=== PATIENT | female | born 1970 | race African-American/Black ===

== ENCOUNTER 2020-05-07 18:11 | Inpatient (IN) | payer MEDICARE, OTHER ==
[~2020-05-07] VITALS: Ht 167.6 cm; Wt 111.6 kg
[2020-05-07 19:02] LABS: BASOPHILS % (AUTO) 0.8 % (0.0-2.0); EOSINOPHILS % (AUTO) 0.8 % (0.0-7.0); HEMATOCRIT 23.3 % (31.2-41.9); HEMOGLOBIN 7.7 g/dL (10.9-14.3); LYMPHOCYTES # (AUTO) 0.2 K/uL (20.0-40.0); LYMPHOCYTES % (AUTO) 4.4 % (20.5-51.5); MEAN CORPUSCULAR HEMOGLOBIN 35.3 uug (24.7-32.8); MEAN CORPUSCULAR HGB CONC 33 g/dL (32.3-35.6); MONOCYTES # (AUTO) 0.6 K/uL (2.0-10.0); MONOCYTES % (AUTO) 10.5 % (0.0-11.0); NEUTROPHILS # (AUTO) 4.7 K/uL (1.8-8.9); NEUTROPHILS % (AUTO) 83.5 % (38.5-71.5); PLATELET COUNT (AUTO) 286 K/uL (179-408); WHITE BLOOD COUNT (AUTO) 5.7 K/uL (3.8-11.8)
--- NOTE | 2020-05-07 19:06 | NUR ---
Pt MATTHEW ACEVEDO, reports pt has generalized weakness, BG 123, had dialysis today. Pt c/o General weakness since Thanksgiving, today is worse. Pt also c/o dizziness, SOB, cough, and nausea. Pt denies CP. No distress noted but pt is lethargic.
[2020-05-07 19:08] LABS: POTASSIUM 4.2 mmol/L (3.5-5.1)
[2020-05-07 19:11] LABS: RED BLOOD CELL COUNT(AUTO) 2.18 MIL/uL (3.63-4.92)
[2020-05-07 19:23] LABS: ABG HCO3 30.6 mmol/L; ABG PCO2 38.9 mmHg (35.0-45.0); ABG PH 7.513 (7.350-7.450); ABG SITE RIGHT RADIAL; ABG TOTAL HEMOGLOBIN 7.8 G/dL (12.0-16.0); COHb 1.9 % (0.5-1.5); MetHb 0.6 % (0.0-1.5); O2Hb 81.3 % (94.0-97.0); VENT MODE Room Air
[2020-05-07 19:47] LABS: FERRITIN 1946 ng/mL (8-252); LACTATE DEHYDROGENASE 331 U/L (81-234)
[2020-05-07 19:49] LABS: BILIRUBIN,DIRECT 0.3 mg/dL (0.0-0.2); BILIRUBIN,TOTAL 0.9 mg/dL (0.2-1.0); TOTAL PROTEIN, SERUM 8.4 g/dL (6.4-8.2)
--- NOTE | 2020-05-07 20:44 | NUR ---
GEOPHYSICAL LABORATORY DIRECTOR KRISTIN NOTIFIED COVID ANTIGEN POSTIVE for patient
[2020-05-07] MEDS ORDERED: AZITHROMYCIN IV 500 MG in IV DEXTROSE 5% 250 ML IV ONE (21:00)
[2020-05-07] MEDS ORDERED: CEFTRIAXONE 1 G in IV DEXTROSE 5% 50 ML IV ONE (21:00)
[2020-05-07] MEDS ORDERED: CEFTRIAXONE /D5W 50ML IVPB **ER PYXIS IV ONE (21:45)
[2020-05-07] MEDS ORDERED: AZITHROMYCIN 500MG/ D5W 250ML IVPB **ER PYXIS ONLY IV ONE (22:39)
--- NOTE | 2020-05-08 | NUR ---
Point of contact ZOE
[2020-05-08] MEDS ORDERED: DEXAMETHASONE SOD PHOSPHATE 4 MG INJ IV ONE (00:45)
--- NOTE | 2020-05-08 00:45 | NUR ---
Patient SBP increased to 170s-180s range; MD HERNANDEZ notified.
[2020-05-08] MEDS ORDERED: DEXAMETHASONE SOD PHOSPHATE 10 MG INJ ONE (01:09)
--- NOTE | 2020-05-08 03:05 | NUR ---
Patient SBP trending now in 160s to 170s range. MD HERNANDEZ notified. No orders given at this time.
--- NOTE | 2020-05-08 05:09 | NUR ---
Rashmi SANDHU On-Call Doctor, awaiting call back. Addendum: 05/08/20 at 0631 by TANYA For SBP management
--- NOTE | 2020-05-08 05:38 | NUR ---
Dr. Khan returned call; requested pt to be transitional status. Addendum: 05/08/20 at 0632 by TANYA Amendment john in EDM - 05/08/20 at 0632 by TANYA To continue patient's care Addendum: 05/08/20 at 0632 by TANYA To manage patient's care
[2020-05-08] MEDS ORDERED: ALBUTEROL SULFATE 8 GM HFA.AER.AD IH PRN (06:15)
[2020-05-08] MEDS ORDERED: TEMAZEPAM 15 MG CAPSULE PO PRN (06:15)
--- NOTE | 2020-05-08 06:15 | NUR ---
Blood glucose result 57, patient given apple juice.
[2020-05-08 06:33] LABS: BASOPHILS % (AUTO) 0.8 % (0.0-2.0); EOSINOPHILS % (AUTO) 0.2 % (0.0-7.0); HEMATOCRIT 22.5 % (31.2-41.9); HEMOGLOBIN 7.5 g/dL (10.9-14.3); LYMPHOCYTES # (AUTO) 0.1 K/uL (20.0-40.0); LYMPHOCYTES % (AUTO) 3.4 % (20.5-51.5); MEAN CORPUSCULAR HEMOGLOBIN 35.9 uug (24.7-32.8); MEAN CORPUSCULAR HGB CONC 34 g/dL (32.3-35.6); MONOCYTES # (AUTO) 0.2 K/uL (2.0-10.0); MONOCYTES % (AUTO) 5.7 % (0.0-11.0); NEUTROPHILS # (AUTO) 3.9 K/uL (1.8-8.9); NEUTROPHILS % (AUTO) 89.9 % (38.5-71.5); PLATELET COUNT (AUTO) 269 K/uL (179-408); WHITE BLOOD COUNT (AUTO) 4.3 K/uL (3.8-11.8)
[2020-05-08 06:45] LABS: POTASSIUM 4.8 mmol/L (3.5-5.1)
[2020-05-08 06:47] LABS: CREATININE 10.4 mg/dL (0.6-1.3)
[2020-05-08 06:50] LABS: BILIRUBIN,TOTAL 0.8 mg/dL (0.2-1.0); MAGNESIUM 2.2 mg/dL (1.8-2.4); PHOSPHOROUS 5.9 mg/dL (2.5-4.9); TOTAL PROTEIN, SERUM 8.2 g/dL (6.4-8.2)
[2020-05-08 06:56] LABS: THYROID STIMULATING HORMONE 2.132 mIU/mL (0.358-3.740)
[2020-05-08] MEDS ORDERED: DEXTROSE 50% 50 ML DISP.SYRIN IV ONE (07:15)
[2020-05-08] MEDS ORDERED: DEXTROSE 50% 50 ML DISP.SYRIN ONE (07:15)
[2020-05-08] MEDS: CLONIDINE HCL 0.1 MG TABLET PO PRN (07:27)
[2020-05-08] MEDS ORDERED: CLONIDINE HCL 0.1 MG TABLET ONE (07:29)
--- NOTE | 2020-05-08 08:30 | NUR ---
Pt resting in bed, no complaints, no distress noted.
[2020-05-08] MEDS ORDERED: AMLODIPINE 5 MG TABLET ONE ×2 (09:45→22:26)
[2020-05-08] MEDS ORDERED: METOPROLOL TARTRATE 50 MG TABLET ONE ×2 (09:46→22:26)
[2020-05-08] MEDS ORDERED: ASPIRIN EC 81 MG TABLET.DR PO ONE (09:46)
[2020-05-08] MEDS ORDERED: PANTOPRAZOLE SODIUM 40 MG TABLET.DR PO ONE (09:46)
[2020-05-08] MEDS: AMLODIPINE 5 MG TABLET PO SCH ×2 (10:15→22:00)
[2020-05-08] MEDS: PANTOPRAZOLE SODIUM 40 MG TABLET.DR PO SCH (10:15)
[2020-05-08] MEDS: METOPROLOL TARTRATE 50 MG TABLET PO SCH ×2 (10:15→22:00)
[2020-05-08] MEDS: ASPIRIN EC 81 MG TABLET.DR PO SCH (10:15)
--- NOTE | 2020-05-08 14:05 | NUR ---
Gave pt lunch tray. Pt instructed in necessity to keep O2 canula in place, kept moving it below her chin.
--- NOTE | 2020-05-08 17:00 | NUR ---
Pt resting in bed, no further complaints, no distress noted. Gave pt crackers and juice.
--- NOTE | 2020-05-08 19:20 | NUR ---
Dialysis nurse arrived to provide dialysis to patient.
[2020-05-08] MEDS ORDERED: DOCUSATE SODIUM 250 MG CAPSULE PO SCH (21:00)
[2020-05-08] MEDS: DOCUSATE SODIUM 100 MG CAPSULE PO SCH (22:00)
[2020-05-08] MEDS ORDERED: DOCUSATE SODIUM 100 MG CAPSULE PO ONE (22:17)
--- NOTE | 2020-05-08 23:50 | NUR ---
Patient is resting in bed peacefully, no distress noted.
--- NOTE | 2020-05-09 04:31 | NUR ---
Patient is resting in bed with eyes closed, no distress noted at this time.
[2020-05-09] MEDS ORDERED: CLONIDINE HCL 0.1 MG TABLET ONE (06:22)
[2020-05-09] MEDS: CLONIDINE HCL 0.1 MG TABLET PO PRN (06:23)
--- NOTE | 2020-05-09 07:38 | NUR ---
(Pandemic disaster charting with no appropriate staffing ratio observed in ER): Maintenance Groundman assumes care: patient is seen on gurney, AOX4, obese, "I am blind." per patient's verbalization, reorientation to surroundings done, respiration:easy, skin warm & dry, afebrile, calm, denies feelings of shortness of breath, pending available COVID telemetry bed & [email or web address] time
[2020-05-09] MEDS ORDERED: METOPROLOL TARTRATE 50 MG TABLET ONE ×2 (08:33→20:50)
[2020-05-09] MEDS ORDERED: AMLODIPINE 5 MG TABLET ONE ×2 (08:33→20:50)
[2020-05-09] MEDS ORDERED: ASPIRIN EC 81 MG TABLET.DR PO ONE (08:33)
[2020-05-09] MEDS ORDERED: PANTOPRAZOLE SODIUM 40 MG TABLET.DR PO ONE (08:33)
[2020-05-09] MEDS: PANTOPRAZOLE SODIUM 40 MG TABLET.DR PO SCH (09:00)
[2020-05-09] MEDS: ASPIRIN EC 81 MG TABLET.DR PO SCH (09:08)
[2020-05-09] MEDS: METOPROLOL TARTRATE 50 MG TABLET PO SCH ×2 (09:08→21:15)
[2020-05-09] MEDS: AMLODIPINE 5 MG TABLET PO SCH ×2 (09:08→21:15)
[2020-05-09 10:32] LABS: BILIRUBIN,TOTAL 0.7 mg/dL (0.2-1.0); MAGNESIUM 2.3 mg/dL (1.8-2.4); PHOSPHOROUS 6.2 mg/dL (2.5-4.9); POTASSIUM 4.9 mmol/L (3.5-5.1); TOTAL PROTEIN, SERUM 7.3 g/dL (6.4-8.2)
[2020-05-09 10:47] LABS: CREATININE 9.4 mg/dL (0.6-1.3)
--- NOTE | 2020-05-09 11:25 | NUR ---
Patient is seen intermittently removing her nasal cannula. Explained to patient the importance of this oxygen supplement in the treatment plan for COVID-pneumonia. Patient verbalized understanding. Patient frequently asked for ice water, saltine crackers, microwave popcorn & bread. I also explained to her the prescribed diet while in the hospital. More discussion needed in small frequent doses to sustain patient's interest.
[2020-05-09 12:39] LABS: BASOPHILS % (AUTO) 0.4 % (0.0-2.0); EOSINOPHILS # (AUTO) 0.1 K/uL (0.0-0.7); EOSINOPHILS % (AUTO) 1.8 % (0.0-7.0); HEMATOCRIT 21.4 % (31.2-41.9); LYMPHOCYTES # (AUTO) 0.7 K/uL (20.0-40.0); LYMPHOCYTES % (AUTO) 12.6 % (20.5-51.5); MEAN CORPUSCULAR HEMOGLOBIN 34.7 uug (24.7-32.8); MEAN CORPUSCULAR HGB CONC 32 g/dL (32.3-35.6); MEAN CORPUSCULAR VOLUME 109.3 fL (75.5-95.3); MONOCYTES # (AUTO) 0.5 K/uL (2.0-10.0); MONOCYTES % (AUTO) 8.7 % (0.0-11.0); NEUTROPHILS % (AUTO) 76.5 % (38.5-71.5); PLATELET COUNT (AUTO) 241 K/uL (179-408); WHITE BLOOD COUNT (AUTO) 5.3 K/uL (3.8-11.8)
--- NOTE | 2020-05-09 13:21 | NUR ---
Patient was moved from [facility] to hospital bed for comfort. Safety & isolation measures maintained.
[2020-05-09 13:33] LABS: HEMOGLOBIN 6.8 g/dL (10.9-14.3); RED BLOOD CELL COUNT(AUTO) 1.96 MIL/uL (3.63-4.92)
[2020-05-09 14:17] LABS: BASOPHILS % (AUTO) 0.7 % (0.0-2.0); EOSINOPHILS # (AUTO) 0.1 K/uL (0.0-0.7); EOSINOPHILS % (AUTO) 1.9 % (0.0-7.0); HEMATOCRIT 21.8 % (31.2-41.9); LYMPHOCYTES # (AUTO) 0.6 K/uL (20.0-40.0); LYMPHOCYTES % (AUTO) 11.3 % (20.5-51.5); MEAN CORPUSCULAR HGB CONC 32 g/dL (32.3-35.6); MEAN CORPUSCULAR VOLUME 110.2 fL (75.5-95.3); MONOCYTES # (AUTO) 0.7 K/uL (2.0-10.0); MONOCYTES % (AUTO) 11.9 % (0.0-11.0); NEUTROPHILS # (AUTO) 4.1 K/uL (1.8-8.9); NEUTROPHILS % (AUTO) 74.2 % (38.5-71.5); PLATELET COUNT (AUTO) 233 K/uL (179-408); WHITE BLOOD COUNT (AUTO) 5.5 K/uL (3.8-11.8)
[2020-05-09 14:38] LABS: RED BLOOD CELL COUNT(AUTO) 1.98 MIL/uL (3.63-4.92)
[2020-05-09 14:39] LABS: HEMOGLOBIN 6.9 g/dL (10.9-14.3)
[2020-05-09] MEDS ORDERED: LABE200T5 PO (15:27)
[2020-05-09] MEDS ORDERED: LEVO100C4 PO (15:27)
[2020-05-09] MEDS ORDERED: GLIM4TAB37 PO (15:27)
[2020-05-09] MEDS ORDERED: SEVE800T8 PO (15:32)
--- NOTE | 2020-05-09 16:05 | NUR ---
Patient's mother called. Update was given. 4 home medications were reported by patient's mother.
[2020-05-09] MEDS: AZITHROMYCIN IV 500 MG in IV DEXTROSE 5% 250 ML IV SCH (16:27)
[2020-05-09] MEDS ORDERED: WARFARIN SODIUM 4 MG TABLET ONE (16:31)
[2020-05-09] MEDS ORDERED: CEFTRIAXONE /D5W 50ML IVPB **ER PYXIS IV ONE (16:32)
[2020-05-09] MEDS ORDERED: AZITHROMYCIN 500MG/ D5W 250ML IVPB **ER PYXIS ONLY IV ONE (16:32)
[2020-05-09] MEDS: CEFTRIAXONE 1 G in IV DEXTROSE 5% 50 ML IV SCH (16:57)
[2020-05-09] MEDS: WARFARIN SODIUM 4 MG TABLET PO SCH (17:00)
[2020-05-09] MEDS ORDERED: HYDROCODONE/APAP 5-325MG TABLET ONE (17:07)
--- NOTE | 2020-05-09 17:42 | NUR ---
Patient is asking for salt & sugar rich foods (e.g. "I want lots of saltine crackers, popcorn, and juice." per patient's verbalization). I explained again the prescribed diet for her. Dinner tray@bedside.
[2020-05-09] MEDS ORDERED: DEXTROSE 50% 50 ML DISP.SYRIN IV PRN (18:45)
--- NOTE | 2020-05-09 19:00 | NUR ---
Patient is resting comfortably in bed while watching bedside TV & finishing her dinner tray.
--- NOTE | 2020-05-09 19:30 | NUR ---
Assumed care for patient at this time from Pretty GRANADOS. Patient not in acute distress. O2 at 2LPM NC, effective for patient with saturation at 100%. Pt crying about situation, RN offered active listening and reassurance, as well as redirection of emotions. Kpet pt comfortable with warm blankets and ice chips as requested. Repositioned in bed. VS taken, stable.
[2020-05-09] MEDS ORDERED: DOCUSATE SODIUM 100 MG CAPSULE PO ONE (20:49)
[2020-05-09] MEDS ORDERED: INSULIN REGULAR, HUMAN 300 UNIT/3 ML VIAL ONE (20:51)
[2020-05-09] MEDS: DOCUSATE SODIUM 100 MG CAPSULE PO SCH (21:15)
[2020-05-09] MEDS: BLOOD SUGAR DIAGNOSTIC 1 EACH STRIP VI SCH (21:15)
--- NOTE | 2020-05-09 23:00 | NUR ---
New admission from ER. PT is legally blind, AOx4. Patient not in acute distress. O2 at 4LPM NC, effective for patient with saturation at 100%. PT IV site right AC 20G heplock and patent. Kept pt comfortable with warm blankets and ice chips as requested. Repositioned in bed. VS taken, stable. Will continue to monitor the PT and follow the plan of care.
[2020-05-09 23:52] VITALS: BP 163/83
[2020-05-10 04:35] VITALS: BP 147/78
[2020-05-10 04:57] LABS: EOSINOPHILS % (MANUAL) 1 % (0-8); LYMPHOCYTES % (MANUAL) 15 % (20-40); MONOCYTES % (MANUAL) 6 % (2-10); NEUTROPHILS % (MANUAL) 78 % (42-75)
[2020-05-10 05:02] LABS: EOSINOPHILS % (MANUAL) 2 % (0-8); LYMPHOCYTES % (MANUAL) 14 % (20-40); MONOCYTES % (MANUAL) 12 % (2-10); NEUTROPHILS % (MANUAL) 72 % (42-75)
--- NOTE | 2020-05-10 05:41 | NUR ---
PT slept most of the night. PT had one bowel movement. No signs of distress. PT kept comfortable with warm blankets. PT on nasal cannula at 4L. Safety precautions and Fall precautions are in place. Will continue to monitor and endorse the morning shift nurse.
[2020-05-10] MEDS: PANTOPRAZOLE SODIUM 40 MG TABLET.DR PO SCH (06:15)
[2020-05-10] MEDS: LEVOTHYROXINE SODIUM 100 MCG TABLET PO SCH (08:39)
[2020-05-10] MEDS: SEVELAMER CARBONATE 800 MG TABLET PO SCH ×3 (08:39→17:52)
[2020-05-10] MEDS: ASPIRIN EC 81 MG TABLET.DR PO SCH (08:39)
[2020-05-10] MEDS: BLOOD SUGAR DIAGNOSTIC 1 EACH STRIP VI SCH ×4 (08:45→21:00)
[2020-05-10] MEDS: LABETALOL HCL 200 MG TABLET PO SCH ×3 (09:07→17:52)
[2020-05-10] MEDS: AMLODIPINE 5 MG TABLET PO SCH ×2 (09:07→22:31)
[2020-05-10] MEDS: METOPROLOL TARTRATE 50 MG TABLET PO SCH ×2 (09:07→21:00)
[2020-05-10 09:47] LABS: BASOPHILS % (AUTO) 0.4 % (0.0-2.0); EOSINOPHILS % (AUTO) 0.5 % (0.0-7.0); LYMPHOCYTES # (AUTO) 0.2 K/uL (20.0-40.0); LYMPHOCYTES % (AUTO) 3.6 % (20.5-51.5); MEAN CORPUSCULAR HEMOGLOBIN 35.6 uug (24.7-32.8); MEAN CORPUSCULAR HGB CONC 33 g/dL (32.3-35.6); MEAN CORPUSCULAR VOLUME 108.2 fL (75.5-95.3); MONOCYTES # (AUTO) 0.4 K/uL (2.0-10.0); NEUTROPHILS # (AUTO) 5.2 K/uL (1.8-8.9); NEUTROPHILS % (AUTO) 88.5 % (38.5-71.5); PLATELET COUNT (AUTO) 235 K/uL (179-408); WHITE BLOOD COUNT (AUTO) 5.9 K/uL (3.8-11.8)
[2020-05-10 10:15] LABS: RED BLOOD CELL COUNT(AUTO) 1.91 MIL/uL (3.63-4.92)
[2020-05-10 10:38] LABS: HEMATOCRIT 20.7 % (31.2-41.9); HEMOGLOBIN 6.8 g/dL (10.9-14.3)
[2020-05-10 10:46] LABS: POTASSIUM 5.2 mmol/L (3.5-5.1)
[2020-05-10 10:47] LABS: BILIRUBIN,TOTAL 0.7 mg/dL (0.2-1.0); MAGNESIUM 2.3 mg/dL (1.8-2.4); PHOSPHOROUS 6.4 mg/dL (2.5-4.9); TOTAL PROTEIN, SERUM 7.5 g/dL (6.4-8.2)
--- NOTE | 2020-05-10 10:55 | NUR ---
1040 AM - Received critical labs from lab: Hgb 6.8, Hct 20.7. Notified Elizabeth Bassett and received new orders of 1 unit of blood. Nurse will carry out orders
[2020-05-10 12:00] VITALS: BP 165/61
[2020-05-10] MEDS: GLIMEPIRIDE 4 MG TABLET PO SCH ×2 (12:23→17:52)
--- NOTE | 2020-05-10 12:30 | NUR ---
Received call from blood bank and PT's type is not available. Blood bank will notify nurse once order from [facility] comes in. Will endorse to cook night nurse if not completed during day shift.
[2020-05-10] MEDS: INSULIN REGULAR, HUMAN 300 UNIT/3 ML VIAL SQ PRN (13:11)
[2020-05-10 17:20] VITALS: BP 132/66
[2020-05-10] MEDS: DEXAMETHASONE SOD PHOSPHATE 4 MG INJ IV SCH (17:42)
[2020-05-10] MEDS: AZITHROMYCIN IV 500 MG in IV DEXTROSE 5% 250 ML IV SCH (17:50)
[2020-05-10] MEDS: WARFARIN SODIUM 4 MG TABLET PO SCH (18:25)
[2020-05-10] MEDS: CEFTRIAXONE 1 G in IV DEXTROSE 5% 50 ML IV SCH (19:15)
--- NOTE | 2020-05-10 19:30 | NUR ---
Received pt in bed, resting. Does not appear to be in any acute distress at this time. No SOB noted. Call light is within reach and bed is locked and in lowest position. No other issues or concerns at this time.
[2020-05-10 20:31] LABS: BAND % (MANUAL) 1 % (0-10); LYMPHOCYTES % (MANUAL) 8 % (20-40); MONOCYTES % (MANUAL) 2 % (2-10); NEUTROPHILS % (MANUAL) 89 % (42-75)
[2020-05-10 21:10] VITALS: BP 119/56
[2020-05-10] MEDS: DOCUSATE SODIUM 100 MG CAPSULE PO SCH (22:29)
[2020-05-10] MEDS: INSULIN REGULAR, HUMAN 300 UNITS/3 ML VIAL SQ PRN (23:35)
[2020-05-11 01:31] VITALS: BP 130/60
[2020-05-11] MEDS: ONDANSETRON 4 MG/2 ML VIAL IV PRN ×2 (04:48→08:33)
[2020-05-11 05:53] VITALS: BP 145/63
[2020-05-11] MEDS: PANTOPRAZOLE SODIUM 40 MG TABLET.DR PO SCH (06:49)
[2020-05-11] MEDS: BLOOD SUGAR DIAGNOSTIC 1 EACH STRIP VI SCH ×4 (06:53→21:59)
[2020-05-11 08:08] LABS: BILIRUBIN,TOTAL 0.6 mg/dL (0.2-1.0); MAGNESIUM 2.1 mg/dL (1.8-2.4); PHOSPHOROUS 7.9 mg/dL (2.5-4.9); POTASSIUM 5.8 mmol/L (3.5-5.1); TOTAL PROTEIN, SERUM 7.5 g/dL (6.4-8.2)
[2020-05-11 08:11] LABS: BASOPHILS % (AUTO) 0.1 % (0.0-2.0); LYMPHOCYTES # (AUTO) 0.1 K/uL (20.0-40.0); LYMPHOCYTES % (AUTO) 3.3 % (20.5-51.5); MONOCYTES # (AUTO) 0.2 K/uL (2.0-10.0)
[2020-05-11 08:13] LABS: EOSINOPHILS % (AUTO) 0.1 % (0.0-7.0); MEAN CORPUSCULAR HEMOGLOBIN 35.6 uug (24.7-32.8); MEAN CORPUSCULAR HGB CONC 33 g/dL (32.3-35.6); MEAN CORPUSCULAR VOLUME 107.5 fL (75.5-95.3); MONOCYTES % (AUTO) 3.7 % (0.0-11.0); NEUTROPHILS # (AUTO) 4.2 K/uL (1.8-8.9); NEUTROPHILS % (AUTO) 92.8 % (38.5-71.5); PLATELET COUNT (AUTO) 237 K/uL (179-408); WHITE BLOOD COUNT (AUTO) 4.5 K/uL (3.8-11.8)
[2020-05-11] MEDS: DEXAMETHASONE SOD PHOSPHATE 4 MG INJ IV SCH (08:34)
[2020-05-11] MEDS: AMLODIPINE 5 MG TABLET PO SCH ×2 (09:00→21:45)
[2020-05-11] MEDS: LABETALOL HCL 200 MG TABLET PO SCH ×3 (09:00→17:00)
[2020-05-11] MEDS: METOPROLOL TARTRATE 50 MG TABLET PO SCH (09:00)
[2020-05-11 09:04] LABS: RED BLOOD CELL COUNT(AUTO) 1.93 MIL/uL (3.63-4.92)
[2020-05-11 09:05] LABS: CREATININE 12.6 mg/dL (0.6-1.3)
[2020-05-11 09:06] LABS: HEMATOCRIT 20.8 % (31.2-41.9); HEMOGLOBIN 6.9 g/dL (10.9-14.3)
[2020-05-11] MEDS ORDERED: EPOETIN ALFA 10,000 UNITS/ML VIAL SQ ONE (10:30)
[2020-05-11] MEDS: GLIMEPIRIDE 4 MG TABLET PO SCH ×2 (11:19→19:01)
[2020-05-11] MEDS: SEVELAMER CARBONATE 800 MG TABLET PO SCH ×4 (11:19→19:01)
[2020-05-11] MEDS: LEVOTHYROXINE SODIUM 100 MCG TABLET PO SCH (11:20)
[2020-05-11] MEDS: ASPIRIN EC 81 MG TABLET.DR PO SCH (11:20)
[2020-05-11 11:51] VITALS: BP 137/42
[2020-05-11 15:59] VITALS: BP 153/51
[2020-05-11] MEDS: AZITHROMYCIN 250 MG TABLET PO SCH (16:12)
--- NOTE | 2020-05-11 18:49 | NUR ---
patient is alert and oriented x4. receiving 4L oxygen via NC, tolerating well. respirations are even and unlabored. no signs of respiratory distress. CLOTH FINISHER Elizabeth Bassett notified of critical lab value hemoglobin 6.9 and hematocrit 20.8. orders given for epogen 5000 units, orders noted and carried out. administered to patient with no adverse reaction. patient to be receiving blood transfusion. blood bank called and was notified that patient's blood was accidentally sent to a different hospital. blood bank to notify when blood has arrived. consent for blood transfusion signed. patient also signed consent for convalescent plasma, blood bank notified. patient refusing Insulin per sliding scale for episodes of hyperglycemia. provided with education about importance of insulin for diabetic management, verbalizes understanding but continues to refuse. Call light and personal valuables placed within reach.
[2020-05-11] MEDS: CEFTRIAXONE 1 G in IV DEXTROSE 5% 50 ML IV SCH (19:02)
--- NOTE | 2020-05-11 20:00 | NUR ---
RECEIVED PATIENT ASLEEP IN BED. NO RESP. DISTRESS NOTED. ON O2 3L NC. ON ISOLATION FOR COVID POSITIVE. DENIES ANY SOB. ON TELE SR. MID-LINE NOTED TO RIGHT UPPER ARM. ALL NEEDS ATTENDED. WILL CONTINUE TO MONITOR AND ASSESS.
[2020-05-11 20:36] VITALS: BP 151/51
[2020-05-11 21:25] LABS: LYMPHOCYTES % (MANUAL) 6 % (20-40); MONOCYTES % (MANUAL) 3 % (2-10); NEUTROPHILS % (MANUAL) 91 % (42-75)
[2020-05-11] MEDS: DOCUSATE SODIUM 100 MG CAPSULE PO SCH (21:44)
--- NOTE | 2020-05-11 22:00 | NUR ---
Patient refused insulin.
[2020-05-11] MEDS: ACETAMINOPHEN 325 MG TABLET PO PRN (22:56)
[2020-05-12 00:15] VITALS: BP 137/60
[2020-05-12] MEDS: ONDANSETRON 4 MG/2 ML VIAL IV PRN ×2 (02:17→09:10)
[2020-05-12 04:33] VITALS: BP 126/58
[2020-05-12] MEDS: PANTOPRAZOLE SODIUM 40 MG TABLET.DR PO SCH (06:21)
[2020-05-12] MEDS: BLOOD SUGAR DIAGNOSTIC 1 EACH STRIP VI SCH ×4 (07:00→21:40)
[2020-05-12] MEDS: ASPIRIN EC 81 MG TABLET.DR PO SCH (08:54)
[2020-05-12] MEDS: DEXAMETHASONE SOD PHOSPHATE 4 MG INJ IV SCH (08:54)
[2020-05-12] MEDS: AMLODIPINE 5 MG TABLET PO SCH ×2 (08:56→20:57)
[2020-05-12] MEDS: LEVOTHYROXINE SODIUM 100 MCG TABLET PO SCH (08:57)
[2020-05-12] MEDS: SEVELAMER CARBONATE 800 MG TABLET PO SCH ×3 (08:57→16:44)
[2020-05-12] MEDS: LABETALOL HCL 200 MG TABLET PO SCH ×3 (08:58→16:58)
[2020-05-12] MEDS: GLIMEPIRIDE 4 MG TABLET PO SCH ×2 (08:59→16:42)
[2020-05-12] MEDS: HYDROCODONE/APAP 5-325MG TABLET PO PRN (09:10)
[2020-05-12 09:42] LABS: BILIRUBIN,TOTAL 0.5 mg/dL (0.2-1.0); POTASSIUM 4.7 mmol/L (3.5-5.1); TOTAL PROTEIN, SERUM 6.8 g/dL (6.4-8.2)
[2020-05-12] MEDS: INSULIN REGULAR, HUMAN 300 UNIT/3 ML VIAL SQ PRN (11:53)
[2020-05-12 11:58] VITALS: BP 142/48
--- NOTE | 2020-05-12 11:58 | NUR ---
Blood sugar is 159. Patient continue to refuse insulin.
[2020-05-12 16:38] VITALS: BP 116/44
[2020-05-12] MEDS: AZITHROMYCIN 250 MG TABLET PO SCH (16:43)
--- NOTE | 2020-05-12 16:57 | NUR ---
PATIENT CONTINUE TO REFUSE INSULIN SLIDING SCALE
[2020-05-12] MEDS ORDERED: CEFTRIAXONE 2 G in IV DEXTROSE 5% 100 ML IV SCH (17:00)
[2020-05-12 20:00] VITALS: BP 95/32
--- NOTE | 2020-05-12 20:00 | NUR ---
AWAKE,ALERT WEAK PASSIVE PULSE OXIMETRY 98%IN NO ACUTE DISTRESS. SINUS RHYTHM ,NO COMPLAINTS MADE.,
[2020-05-12] MEDS: DOCUSATE SODIUM 100 MG CAPSULE PO SCH (20:57)
[2020-05-13] VITALS (9 sets, daily range): BP systolic 112–178; BP diastolic 50–75
[2020-05-13] MEDS: ACETAMINOPHEN 325 MG TABLET PO PRN ×2 (04:00→07:52)
[2020-05-13] MEDS: BLOOD SUGAR DIAGNOSTIC 1 EACH STRIP VI SCH ×5 (05:00→21:19)
[2020-05-13] MEDS: PANTOPRAZOLE SODIUM 40 MG TABLET.DR PO SCH (06:07)
--- NOTE | 2020-05-13 06:33 | NUR ---
BLOOD SUGAR 69,COOKIES AND A LITTLE APPLE JUICE GIVEN 63,FRUIT COCKTAIL GIVEN BLOOD SUGAR 77.
--- NOTE | 2020-05-13 06:36 | NUR ---
WANTS TO HAVE PHYSICAL THERAPY TO WALK
[2020-05-13 06:52] LABS: BASOPHILS % (AUTO) 0.3 % (0.0-2.0); LYMPHOCYTES # (AUTO) 0.5 K/uL (20.0-40.0); LYMPHOCYTES % (AUTO) 10.5 % (20.5-51.5); MEAN CORPUSCULAR HEMOGLOBIN 35.3 uug (24.7-32.8); MEAN CORPUSCULAR HGB CONC 33 g/dL (32.3-35.6); MEAN CORPUSCULAR VOLUME 107.3 fL (75.5-95.3); MONOCYTES # (AUTO) 0.4 K/uL (2.0-10.0); MONOCYTES % (AUTO) 8.5 % (0.0-11.0); NEUTROPHILS # (AUTO) 3.7 K/uL (1.8-8.9); NEUTROPHILS % (AUTO) 80.7 % (38.5-71.5); PLATELET COUNT (AUTO) 220 K/uL (179-408); WHITE BLOOD COUNT (AUTO) 4.6 K/uL (3.8-11.8)
--- NOTE | 2020-05-13 07:10 | NUR ---
RECEIVED PATIENT IN BED, AWAKE, ABLE TO MAKE NEEDS KNOWN, COOPERATIVE WITH CARE. PATIENT ON OXYGEN AT 2LPM VIA NC SATURATING 98%. PATIENT HAS UPPER ARM MIDLINE, INTACT AND PATENT. NO S/S OF RESPIRATORY DISTRESS, NO CHEST PAIN REPORTED. WILL CONTINUE TO MONITOR.
[2020-05-13 07:18] LABS: POTASSIUM 4.5 mmol/L (3.5-5.1)
[2020-05-13] MEDS: DEXAMETHASONE SOD PHOSPHATE 4 MG INJ IV SCH (08:13)
[2020-05-13] MEDS: SEVELAMER CARBONATE 800 MG TABLET PO SCH ×4 (08:14→16:55)
[2020-05-13] MEDS: LEVOTHYROXINE SODIUM 100 MCG TABLET PO SCH (08:14)
[2020-05-13] MEDS: AMLODIPINE 5 MG TABLET PO SCH ×2 (08:20→21:15)
[2020-05-13] MEDS: LABETALOL HCL 200 MG TABLET PO SCH ×3 (09:00→16:56)
[2020-05-13 09:12] LABS: RED BLOOD CELL COUNT(AUTO) 1.88 MIL/uL (3.63-4.92)
[2020-05-13 09:15] LABS: HEMATOCRIT 20.1 % (31.2-41.9); HEMOGLOBIN 6.6 g/dL (10.9-14.3)
[2020-05-13 09:16] LABS: CREATININE 11.3 mg/dL (0.6-1.3)
[2020-05-13] MEDS: HYDROCODONE/APAP 5-325MG TABLET PO PRN (09:39)
--- NOTE | 2020-05-13 10:10 | NUR ---
RECEIVED CALL FROM LABORATORY FOR PATIENT'S CRITICAL LAB RESULTS, CREATININE: 11.3, HEMOGLOBIN 6.6, HEMATOCRIT 20.1. INFORMED DR. DOAN OF CRITICAL LAB RESULTS. DR. DOAN ORDERED 1 [facility] TO BE INFUSED WITH DIALYSIS. CONSENT SIGNED BY PATIENT.
--- NOTE | 2020-05-13 10:31 | NUR ---
RECEIVED CALL FROM [facility] OF BLOOD BANK. 1 [facility] IS READY FOR THE PATIENT.
--- NOTE | 2020-05-13 11:30 | NUR ---
BLOOD SUGAR FOR 1130 IS 74. NO INSULIN GIVEN. GAVE APPLE JUICE TO PATIENT.
[2020-05-13] MEDS: ONDANSETRON 4 MG/2 ML VIAL IV PRN (13:36)
--- NOTE | 2020-05-13 13:37 | NUR ---
Patient refused Zofran medication after having 270 cc of emesis. Multiple attempts are made by the nurse but patient still refusing the medication.
--- NOTE | 2020-05-13 13:40 | NUR ---
Zofran was already drawn out of the vial but patient refused the medication.
--- NOTE | 2020-05-13 19:12 | NUR ---
Blood transfusion started.
[2020-05-13 19:14] LABS: LYMPHOCYTES % (MANUAL) 10 % (20-40); MONOCYTES % (MANUAL) 10 % (2-10); NEUTROPHILS % (MANUAL) 80 % (42-75)
--- NOTE | 2020-05-13 19:36 | NUR ---
Transfusion completed without reactions. With on going hemodialysis. Report given to assistant casino shift manager nurse.
--- NOTE | 2020-05-13 20:12 | NUR ---
Patient awake ,ALOx4 with NC at @2LPM via NC 98%.Iv access on right upper arm 18 g patent and intact. AV shunt on left upper arm.S/p dialysis with 1800 ml output per dialysis nurse.BS checked 58.[place] juice given and sandwich.Continue safety measures.will continue to monitor.
[2020-05-13] MEDS: DOCUSATE SODIUM 100 MG CAPSULE PO SCH (21:13)
[2020-05-14 00:22] VITALS: BP 108/43
[2020-05-14 04:00] VITALS: BP 105/35
[2020-05-14] MEDS: PANTOPRAZOLE SODIUM 40 MG TABLET.DR PO SCH (06:11)
[2020-05-14] MEDS: BLOOD SUGAR DIAGNOSTIC 1 EACH STRIP VI SCH ×4 (06:12→20:59)
--- NOTE | 2020-05-14 07:06 | NUR ---
Patient asleep.No acute distress noted through out the night. Bs checked this a.m 53. [place]irdler juice given.Rechecked BS after one hour went up to 61.Patient denies pain,n/v, sweating.Will endorsed to oncoming shift.
[2020-05-14 07:10] LABS: BASOPHILS % (AUTO) 0.2 % (0.0-2.0); HEMATOCRIT 26.1 % (31.2-41.9); HEMOGLOBIN 8.7 g/dL (10.9-14.3); LYMPHOCYTES # (AUTO) 0.5 K/uL (20.0-40.0); LYMPHOCYTES % (AUTO) 8.5 % (20.5-51.5); MEAN CORPUSCULAR HEMOGLOBIN 34.6 uug (24.7-32.8); MEAN CORPUSCULAR HGB CONC 34 g/dL (32.3-35.6); MEAN CORPUSCULAR VOLUME 103.3 fL (75.5-95.3); MONOCYTES # (AUTO) 0.4 K/uL (2.0-10.0); MONOCYTES % (AUTO) 6.3 % (0.0-11.0); NEUTROPHILS # (AUTO) 5.4 K/uL (1.8-8.9); PLATELET COUNT (AUTO) 245 K/uL (179-408); RED BLOOD CELL COUNT(AUTO) 2.53 MIL/uL (3.63-4.92); WHITE BLOOD COUNT (AUTO) 6.4 K/uL (3.8-11.8)
[2020-05-14 07:21] LABS: POTASSIUM 4.2 mmol/L (3.5-5.1)
[2020-05-14 07:31] LABS: CREATININE 10.1 mg/dL (0.6-1.3)
[2020-05-14] MEDS: DEXAMETHASONE SOD PHOSPHATE 4 MG INJ IV SCH (09:34)
[2020-05-14] MEDS: SEVELAMER CARBONATE 800 MG TABLET PO SCH ×3 (09:34→17:03)
[2020-05-14] MEDS: LEVOTHYROXINE SODIUM 100 MCG TABLET PO SCH (09:34)
[2020-05-14] MEDS: AMLODIPINE 5 MG TABLET PO SCH ×2 (09:55→21:08)
[2020-05-14] MEDS: LABETALOL HCL 200 MG TABLET PO SCH ×3 (09:56→17:02)
[2020-05-14] MEDS: CLONIDINE HCL 0.1 MG TABLET PO PRN (11:21)
--- NOTE | 2020-05-14 12:12 | NUR ---
Patient noted with BP of 183/64 prior to physical therapy. Administered PRN Clonidine as ordered and decreased BP to 154/40 HR 68. She denies any pain or discomfort at this time. Will continue to monitor.
[2020-05-14 12:17] VITALS: BP 154/40
[2020-05-14 16:00] VITALS: BP 142/69
--- NOTE | 2020-05-14 18:19 | NUR ---
Followed up with laboratory regarding availability of convalescent plasma, per Eddie its still on order with [facility] and awaiting availability, no specified time given.
--- NOTE | 2020-05-14 18:23 | NUR ---
Patient remains alert, oriented x 4, not in any form of acute distress, on 2LPM via NC O2 sat of 100 %. She denies any pain or discomfort at this time. Needs attended to promptly. Call light and frequently used items placed within patient's reach. Will endorse accordingly to mine inspector federal nurse.
[2020-05-14 20:00] VITALS: BP 162/73
[2020-05-14] MEDS: DOCUSATE SODIUM 100 MG CAPSULE PO SCH (20:59)
[2020-05-14] MEDS: INSULIN REGULAR, HUMAN 300 UNITS/3 ML VIAL SQ PRN (20:59)
--- NOTE | 2020-05-14 21:47 | NUR ---
Received pt resting in bed and watching tv. AAO x4. On 2L O2 via NC, no acute distress noted. Denies pain/ discomfort. Accucheck 196, pt refused insulin as her blood sugar tends to go down and has been low the past few days. Pt also refused Colace as she had x3 BM today. Risks and benefits explained. Safety measures maintained. Call light and personal items within reach. Will continue to monitor.
[2020-05-15 00:43] VITALS: BP 102/43
[2020-05-15] MEDS: BLOOD SUGAR DIAGNOSTIC 1 EACH STRIP VI SCH ×4 (06:49→20:17)
[2020-05-15] MEDS: PANTOPRAZOLE SODIUM 40 MG TABLET.DR PO SCH (06:49)
--- NOTE | 2020-05-15 06:55 | NUR ---
right upper arm midline, cleaned and changed dressing
[2020-05-15] MEDS: SEVELAMER CARBONATE 800 MG TABLET PO SCH ×3 (08:57→17:23)
[2020-05-15] MEDS: LEVOTHYROXINE SODIUM 100 MCG TABLET PO SCH (08:57)
[2020-05-15] MEDS: DEXAMETHASONE SOD PHOSPHATE 4 MG INJ IV SCH (08:58)
[2020-05-15] MEDS: LABETALOL HCL 200 MG TABLET PO SCH ×3 (09:12→17:41)
[2020-05-15] MEDS: AMLODIPINE 5 MG TABLET PO SCH ×2 (09:12→21:00)
--- NOTE | 2020-05-15 09:53 | NUR ---
Patient is awake, alert oriented x 4, not in any form of distress on 2LPM via NC. Given due medications and tolerated well. Patient refused insulin sliding scale. Explained risks and benefits but patient still refused. Informed Norman Johnson FIELD TECHNICAL ASSISTANT with no new order at this time.
[2020-05-15] MEDS: INSULIN REGULAR, HUMAN 300 UNIT/3 ML VIAL SQ PRN ×2 (11:34→17:36)
[2020-05-15 11:56] VITALS: BP 117/44
[2020-05-15] MEDS ORDERED: POLYVINYL ALCOHOL OPHT DROPS 15 ML BOTTLE EACHEYE PRN (13:15)
[2020-05-15 16:41] VITALS: BP 146/80
[2020-05-15] MEDS: NEPRO (VANILLA) 237 ML CAN PO SCH (17:23)
--- NOTE | 2020-05-15 18:35 | NUR ---
Patient started transfusion of convalescent plasma via downtime procedure. Verified blood product with Michell GRANADOS prior starting transfusion. Spoke with Wanda about product number not scanning and per Wanda use downtime procedure (blood transfusion form/paper). Patient remains alert, oriented x 4, not in any form of distress on 2 LPM via NC. Vital signs stable.
--- NOTE | 2020-05-15 19:10 | NUR ---
Convalescent plasma currently transfusing, no noted transfusion reactions at this time. Patient denies any pain or discomfort. Endorsed accordingly to night coordinator RN.
[2020-05-15] MEDS: DOCUSATE SODIUM 100 MG CAPSULE PO SCH (20:17)
[2020-05-15] MEDS: INSULIN REGULAR, HUMAN 300 UNITS/3 ML VIAL SQ PRN (20:25)
[2020-05-15 20:45] VITALS: BP 108/46
--- NOTE | 2020-05-15 21:19 | NUR ---
Received pt resting in bed and transfusing convalescent plasma. AAO x3-4. On 2L O2 via NC, no acute distress noted. Denies pain/ discomfort. Accucheck 301, insulin coverage given. Snacks given to prevent hypoglycemia as pt has been presenting low blood sugar the past few days. Held Norvasc due to decreased BP. Transfusion ended at 2044, no adverse reactions noted. Pt tolerated well. Safety measures maintained. Call light and personal items within reach. Will continue to monitor.
[2020-05-16 00:09] VITALS: BP 105/50
[2020-05-16 04:18] VITALS: BP 119/47
[2020-05-16] MEDS: PANTOPRAZOLE SODIUM 40 MG TABLET.DR PO SCH (06:11)
[2020-05-16] MEDS: BLOOD SUGAR DIAGNOSTIC 1 EACH STRIP VI SCH ×2 (06:41→12:16)
--- NOTE | 2020-05-16 07:30 | NUR ---
received patient awake alert and oriented x3, resting in bed. Patient is on O2 via NC at 2L saturating at 95%. no signs of distress noted. Left upper arm AV shunt, and right upper arm midline. bed in low and locked position, safety and isolation precautions in place. will continue to monitor.
[2020-05-16 08:25] LABS: BASOPHILS % (AUTO) 0.1 % (0.0-2.0); HEMATOCRIT 27.8 % (31.2-41.9); HEMOGLOBIN 9.3 g/dL (10.9-14.3); LYMPHOCYTES # (AUTO) 0.4 K/uL (20.0-40.0); LYMPHOCYTES % (AUTO) 4.4 % (20.5-51.5); MEAN CORPUSCULAR HEMOGLOBIN 34.3 uug (24.7-32.8); MEAN CORPUSCULAR HGB CONC 33 g/dL (32.3-35.6); MEAN CORPUSCULAR VOLUME 102.8 fL (75.5-95.3); MONOCYTES # (AUTO) 0.5 K/uL (2.0-10.0); MONOCYTES % (AUTO) 5.7 % (0.0-11.0); NEUTROPHILS # (AUTO) 7.2 K/uL (1.8-8.9); NEUTROPHILS % (AUTO) 89.8 % (38.5-71.5); PLATELET COUNT (AUTO) 259 K/uL (179-408); WHITE BLOOD COUNT (AUTO) 8.1 K/uL (3.8-11.8)
[2020-05-16 08:30] VITALS: BP 134/53
[2020-05-16] MEDS ORDERED: BENZOCAINE/MENTH/CETYLPYRD LOZENGE MM PRN (08:45)
[2020-05-16] MEDS: LABETALOL HCL 200 MG TABLET PO SCH ×2 (09:00→13:36)
[2020-05-16] MEDS: DEXAMETHASONE SOD PHOSPHATE 4 MG INJ IV SCH (09:07)
[2020-05-16] MEDS: SEVELAMER CARBONATE 800 MG TABLET PO SCH ×2 (09:08→13:36)
[2020-05-16] MEDS: LEVOTHYROXINE SODIUM 100 MCG TABLET PO SCH (09:08)
[2020-05-16] MEDS: NEPRO (VANILLA) 237 ML CAN PO SCH (09:09)
[2020-05-16] MEDS: AMLODIPINE 5 MG TABLET PO SCH ×2 (09:09→09:25)
[2020-05-16 09:32] LABS: MAGNESIUM 2.4 mg/dL (1.8-2.4); PHOSPHOROUS 6.7 mg/dL (2.5-4.9); POTASSIUM 4.6 mmol/L (3.5-5.1)
[2020-05-16 10:46] LABS: CREATININE 13.6 mg/dL (0.6-1.3)
[2020-05-16] MEDS: INSULIN REGULAR, HUMAN 300 UNIT/3 ML VIAL SQ PRN (13:46)
--- NOTE | 2020-05-16 15:05 | NUR ---
pt received dialysis, started at 1200 and ended at 1500. B/P:186/79, HR:67, 2,100 out. Will continue to monitor.
--- NOTE | 2020-05-16 16:00 | NUR ---
pt was discharged to [facility] via ambulance in stable condition. Patient left with all belongings. Discharge instructions and report given to facility RN.
[2020-05-16 16:01] VITALS: BP 151/49
[2020-05-18 18:41] LABS: HEPATITIS B SURFACE AG NEGATIVE
[2020-05-18 18:42] LABS: HEPATITIS B SURFACE AB REACTIVE
== END 2020-05-16 16:00 | DRG 177 ==
LOC: ER 18:13 → TRANSITION 05-08 07:16 → TELE3 05-09 22:05
PROVIDERS: ADMIT Nurse Practitioner Acute Care; ATTEND Nurse Practitioner Acute Care
PROC: 5A1D70Z Performance of Urinary Filtration, Intermittent, Less than 6 Hours Per Day (ICD-10-PCS; 2020-05-08)
PROC: 05HY33Z Insertion of Infusion Device into Upper Vein, Percutaneous Approach (ICD-10-PCS; 2020-05-10)
PROC: XW13325 Transfusion of Convalescent Plasma (Nonautologous) into Peripheral Vein, Percutaneous Approach, New Technology Group 5 (ICD-10-PCS; principal; 2020-05-15)
DX: U07.1 COVID-19 (principal); J12.82 Pneumonia due to coronavirus disease 2019; J96.01 Acute respiratory failure with hypoxia; N18.6 End stage renal disease; I50.33 Acute on chronic diastolic (congestive) heart failure; I21.4 Non-ST elevation (NSTEMI) myocardial infarction; J15.9 Unspecified bacterial pneumonia; I13.2 Hypertensive heart and chronic kidney disease with heart failure and with stage 5 chronic kidney disease, or end stage renal disease; D68.69 Other thrombophilia; E44.0 Moderate protein-calorie malnutrition; E11.22 Type 2 diabetes mellitus with diabetic chronic kidney disease; E66.01 Morbid (severe) obesity due to excess calories; Z99.2 Dependence on renal dialysis; E78.5 Hyperlipidemia, unspecified; E03.9 Hypothyroidism, unspecified; D63.8 Anemia in other chronic diseases classified elsewhere; M62.50 Muscle wasting and atrophy, not elsewhere classified, unspecified site; E88.09 Other disorders of plasma-protein metabolism, not elsewhere classified; Z68.39 Body mass index [BMI] 39.0-39.9, adult
CPT/HCPCS: 36415; 36600; 70030-TC; 71045; 83605; 83615; 83735; 84100; 84443; 85025; 85610; 85730; 86704; 86705; 86706; 86850; 86900; 86901; 86920; 87040; 87340; 87400; 90937; 93005; A4663; G0378; J0456; J0696; J0885; J1100; J1815; J2405; J3490; J3535; J7030; J7050; J7060; P9016-BL; P9021; Q0144; U0003